=== PATIENT | male | born 1975 | race African-American/Black ===

== ENCOUNTER 2017-09-12 19:27 | Emergency (ER) | payer OTHER ==
[~2017-09-12] VITALS: Ht 185.4 cm; Wt 88.5 kg
[2017-09-12] MEDS ORDERED: SODIUM CHLORIDE 0.9% 500 ML IV ONE (21:00)
[2017-09-12 21:23] LABS: Basophils # (auto) 0 uL; Basophils % (auto) 0.3 % (0.0-2.0); Eosinophils # (auto) 0 uL; Eosinophils % (auto) 0.6 % (0.0-7.0); Hematocrit 42.6 % (41.0-53.0); Lymphocytes # (auto) 0.7 uL; Lymphocytes % (auto) 8.8 % (10.0-50.0); Mean Corpuscular Hemoglobin 27.9 pg (28.0-32.0); Mean Corpuscular Hgb Conc. 32.9 g/dL (32.0-36.0); Mean Corpuscular Volume 84.8 fL (80.0-100.0); Monocytes # (auto) 0.6 uL; Monocytes % (auto) 7.8 % (0.0-12.0); Neutrophils # (auto) 6.3 uL; Neutrophils % (auto) 82.5 % (37.0-80.0); Platelet Count (auto) 237 10^3/uL (140-450); Red Blood Cells 5.02 10^6/uL (4.5-5.90); Red Cell Distribution Width 13.7 % (11.8-14.3); White Blood Cell 7.6 10^3/uL (4.4-10.8)
[2017-09-12 21:31] LABS: Alanine Aminotransferase 31 U/L (16-61); Albumin 4.2 g/dL (3.4-5.0); Alkaline Phosphatase 124 U/L (45-117); Anion Gap 8 (5-15); Aspartate Aminotransferase 32 U/L (15-37); BUN/Creatinine Ratio 12.3; Bilirubin, Total 0.5 mg/dL (0.2-1.0); Blood Urea Nitrogen 14 mg/dL (7-18); Calcium 8.7 mg/dL (8.5-10.1); Carbon Dioxide 26 mmol/L (21-32); Chloride 106 mmol/L (98-107); GFR African American 91 mL/min; GFR Non-African American 76 mL/min; Glucose 96 mg/dL (74-106); Potassium 4.1 mmol/L (3.5-5.1); Sodium 140 mmol/L (136-145); Total Protein 8.2 g/dL (6.4-8.2)
[2017-09-12 22:05] LABS: INR 1.01 (0.9-1.15); Partial Thromboplastin Time 24.6 sec (22.64-33.71)
[2017-09-13 00:02] VITALS: BP 165/84
[2017-09-13 00:48] LABS: Urine Bacteria NONE SEEN /hpf (None Seen); Urine Blood Negative /uL (Negative); Urine Specific Gravity 1.012 (1.001-1.035); Urine WBC 1 /hpf (0 - 3)
[2017-09-13 01:06] LABS: Alcohol, Urine < 3.0 mg/dL (0-5); Amphetamine Screen, Urine NEGATIVE (NEGATIVE); Barbiturate Scree,Urine NEGATIVE (NEGATIVE); Benzodiazephine Screen, Urine NEGATIVE (NEGATIVE); Cannabinoid Screen, Urine NEGATIVE (NEGATIVE); Cocaine Screen, Urine NEGATIVE (NEGATIVE); Opiate Scree,Urine NEGATIVE (NEGATIVE); Phencyclidine Screen, Urine NEGATIVE (NEGATIVE)
== END 2017-09-13 02:27 | disposition home or self-care (01) ==
LOC: ER 19:32
DX: R55 Syncope and collapse (principal); J45.909 Unspecified asthma, uncomplicated; I10 Essential (primary) hypertension; R12 Heartburn
CPT/HCPCS: 36415; 70450; 71045; 80053; 80307; 81001; 83735; 83880; 84484; 85025; 85379; 85610; 85730; 94761; 96360; 96361